=== PATIENT | male | born 1980 | race Caucasian/White ===

== ENCOUNTER → 2020-06-16 11:23 | Outpatient (BNVA) | payer MEDICAID, SELFPAY | PROVIDERS: Visit Provider Nurse Practitioner Family | DX: Z20.2 Contact with and (suspected) exposure to infections with a predominantly sexual mode of transmission (principal); N50.89 Other specified disorders of the male genital organs | CPT/HCPCS: 87086; 87491; 87591 ==

== ENCOUNTER 2020-07-19 15:48 | Inpatient (IN) | payer MEDICAID, SELFPAY ==
[2020-07-19 16:00] VITALS: BP 144/88; PULSE 114; RESP 22; TEMP 36.9; O2SAT 97; BMI 30.8
--- NOTE | 2020-07-19 16:13 | ECG_ITS ---
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 Measurements Intervals [place] Rate: 110 P: 47 OR: 171 QRS: -31 QRSD: 121 T: 70 QT: 317 QTc: 430 Interpretive Statements SINUS TACHYCARDIA POSSIBLE LEFT ATRIAL ENLARGEMENT [-0.1mV P WAVE IN V1/V2] MARKED LEFT AXIS DEVIATION [QRS AXIS < -30] RIGHT BUNDLE BRANCH BLOCK [120+ ms QRS DURATION, UPRIGHT V1, 40+ ms S IN I/aVL/V4/V5/V6] LEFT VENTRICULAR HYPERTROPHY AND ST-T CHANGE [VOLTAGE CRITERIA PLUS ST/T ABNORMALITY] Compared to ECG 09/21/2018 16:10:05 Left-axis deviation now present Right bundle-branch block now present Left ventricular hypertrophy now present Early repolarization no longer present ST (T wave) deviation still present Electronically Signed On 07-20-2020 17:09:27 SECTION HOUSEKEEPER by James Hopkins M.D. [email or web address]
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
[2020-07-19 16:30] VITALS: BP 137/65; PULSE 105; RESP 18; O2SAT 94
[2020-07-19 17:15] LABS: Add Urine Microscopic? NO
[2020-07-19] MEDS: LORazepam 2 mg/mL INJ 1 mL 1 MG IM (17:21)
[2020-07-19 17:22] LABS: Bilirubin Urine Neg (Negative); Blood Urine Neg (Negative); Glucose Urine UA Norm (Normal); Ketones Urine Negative (Negative); Leukocyte Esterase Urine Negative (Negative); Nitrate Urine Negative (Negative); Protein Urine Neg (Negative); Urine Appearance Clear (CLEAR); Urine Color Straw (Yellow); Urobilinogen Urine Norm (Negative); pH Urine 5 (5-7)
[2020-07-19] MEDS: haloperidol inj 5 mg/mL INJ 1 mL IM (17:27)
[2020-07-19] MEDS: LORazepam 1 mg Tablet PO (17:31)
[2020-07-19] MEDS: diphenhydrAMINE 50 mg/mL SDV 1mL IM (17:31)
[2020-07-19 18:05] LABS: Albumin Level 4.3 g/dL (3.5-5.2); Alcohol Level 224 mg/dL (0-10); Alkaline Phosphatase 54 IU/L (40-130); Chloride 104 mmol/L (98-107); Glucose 113 mg/dL (65-115); Potassium 4.1 mmol/L (3.5-5.1); Sodium 137 mmol/L (136-145)
[2020-07-19 18:20] LABS: Acetaminophen < 5.0 ug/mL (10-30); Salicylate < 0.3 mg/dL (3-10)
[2020-07-19 18:37] LABS: Amphetamines Screen Urine Negative (Negative); Barbiturates Screen Urine Negative (Negative); Benzodiazepines Screen Urine Negative (Negative); Cocaine Screen Urine Negative (Negative); Opiate Screen Urine Negative (Negative); PCP Screen Urine Negative (Negative); THC Screen Urine Negative (Negative)
[2020-07-19 18:47] LABS: Anion Gap 18.1 (5-19); Blood Urea Nitrogen 16 mg/dL (6-20); Calcium 8.7 mg/dL (8.5-10.5); Carbon Dioxide 19 mmol/L (22-29); Globulin 2.6 g/dL (1.3-4.6); Glomerular Filtration Rate 67.1 mL/min (90-130); Osmolality Calculated 286 mOsm/kg (285-295); Thyroid Stimulating Hormone 1.35 uIU/mL (0.27-4.20); Total Bilirubin 0.2 mg/dL (0.15-1.2); Total Protein 6.9 g/dL (6.6-8.7)
[2020-07-19 19:28] LABS: Alanine Aminotransferase < 5 U/L (0-41); Aspartate Amino Transferase 5 U/L (0-40)
[2020-07-19 20:04] LABS: Basophils % 0.6 %; Eosinophils # 0.3 10^3/uL (0.0-0.8); Eosinophils % 4.3 %; Hematocrit 40.3 % (42.0-52.0); Hemoglobin 13.8 g/dL (11.7-16.6); Lymphocytes # 2.6 10^3/uL (0.8-4.8); Lymphocytes % 41.3 %; Mean Corpuscular HGB Conc 34.2 g/dL (30.0-36.0); Mean Corpuscular Hemoglobin 30.4 pg (28.0-34.0); Mean Corpuscular Volume 88.8 fL (80-94); Mean Platelet Volume 8.3 fL (7.4-10.4); Monocytes # 0.3 10^3/uL (0.2-0.9); Monocytes % 5.1 %; Neutrophils # 3.01 10^3/uL (1.8-7.7); Neutrophils % 48.4 %; Nucleated Red Blood Cells % 0 %; Platelet Count 378 10^3/cmm (130-400); Red Blood Count 4.54 10^6/uL (4.1-5.3); Red Cell Distribution Width 12.4 % (12.1-15.1); White Blood Count 6.2 10^3/uL (4.0-10.0)
[2020-07-19 20:19] LABS: Alcohol Level 176 mg/dL (0-10)
[2020-07-19 21:43] VITALS: BP 103/69; PULSE 84; O2SAT 96
[2020-07-19 22:00] VITALS: PULSE 91; RESP 18; TEMP 36.8; O2SAT 96
[2020-07-19 22:33] VITALS: BP 109/63; PULSE 72; RESP 18; O2SAT 93
[2020-07-19 22:37] VITALS: BMI 30.8
[2020-07-19] MEDS: acetaminophen 325 mg Tablet 650 MG PO (22:59)
[2020-07-19] MEDS: trazodone 50 mg Tablet PO (23:00)
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
[2020-07-20 06:00] VITALS: RESP 17
[2020-07-20] MEDS: thiamine 100 mg Tablet PO (08:39)
[2020-07-20] MEDS: multivitamin therapeutic Tablet 1 TAB PO (08:39)
[2020-07-20] MEDS: lisinopril 20 mg Tablet PO ×2 (08:39→18:32)
[2020-07-20] MEDS: naproxen 500 mg Tablet PO ×2 (08:39→18:32)
[2020-07-20] MEDS: gabapentin 300 mg Capsule 600 MG PO ×3 (08:39→19:56)
[2020-07-20] MEDS: folic acid 1 mg Tablet PO (08:40)
[2020-07-20 08:47] VITALS: BP 135/93
[2020-07-20] MEDS: cloNIDine 0.1 mg Tablet PO (08:47)
[2020-07-20] MEDS: LORazepam 2 mg Tablet PO ×3 (08:48→19:57)
[2020-07-20] MEDS: nicotine 21 mg Patch 1 PATCH TRANSDERMA (08:49)
--- NOTE | 2020-07-20 08:53 | PC.NURSE ---
CIWA ADMINISTERED ATIVAN 2MG PER CIWA PROTOCOL. CIWA SCORE 10, WILL MONITOR FOR MEDICATION EFFECTIVENESS.
[2020-07-20 14:00] VITALS: BP 128/82; PULSE 88; RESP 18; TEMP 36.8
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
[2020-07-20] MEDS: amlodipine 5 mg Tablet PO (18:32)
[2020-07-20] MEDS: hyDROXYzine 25 mg Capsule 50 MG PO (19:56)
[2020-07-20] MEDS: trazodone 50 mg Tablet PO (19:57)
[2020-07-20] MEDS: guaiFENesin 600 mg Tablet 1200 MG PO (21:38)
[2020-07-20 22:00] VITALS: BP 135/90; PULSE 93; RESP 18; TEMP 36.6; O2SAT 98
[2020-07-21 06:00] VITALS: BP 123/80; PULSE 97; RESP 18; TEMP 37.2; O2SAT 93
[2020-07-21] MEDS: guaiFENesin 600 mg Tablet 1200 MG PO (08:05)
[2020-07-21] MEDS: thiamine 100 mg Tablet PO (08:05)
[2020-07-21 08:06] VITALS: BP 123/80
[2020-07-21] MEDS: cloNIDine 0.1 mg Tablet PO (08:06)
[2020-07-21] MEDS: lisinopril 20 mg Tablet PO (08:06)
[2020-07-21] MEDS: folic acid 1 mg Tablet PO (08:06)
[2020-07-21] MEDS: amlodipine 5 mg Tablet PO (08:06)
[2020-07-21] MEDS: gabapentin 300 mg Capsule 600 MG PO ×2 (08:06→13:57)
[2020-07-21] MEDS: naproxen 500 mg Tablet PO (08:06)
[2020-07-21] MEDS: multivitamin therapeutic Tablet 1 TAB PO (08:06)
[2020-07-21] MEDS: hyDROXYzine 25 mg Capsule 50 MG PO ×2 (08:07→13:57)
[2020-07-21] MEDS: nicotine 21 mg Patch 1 PATCH TRANSDERMA (08:49)
[2020-07-21] MEDS: LORazepam 2 mg Tablet PO (09:17)
[2020-07-21 12:53] VITALS: BP 123/80
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
[2020-07-21 13:03] VITALS: BP 123/80
== END 2020-07-21 14:56 | disposition home or self-care (01) | DRG 881 ==
LOC: ER 16:01 → NP 22:23
PROVIDERS: Admitting Provider Psychiatry & Neurology Psychiatry; Emergency Provider Family Medicine; Visit Provider Psychiatry & Neurology Psychiatry
DX: F32.9 Major depressive disorder, single episode, unspecified (principal); R45.851 Suicidal ideations; F41.9 Anxiety disorder, unspecified; Z59.0 Homelessness; F10.129 Alcohol abuse with intoxication, unspecified; Y90.9 Presence of alcohol in blood, level not specified; I10 Essential (primary) hypertension; F51.04 Psychophysiologic insomnia; F17.210 Nicotine dependence, cigarettes, uncomplicated; B07.9 Viral wart, unspecified; G89.29 Other chronic pain; M25.562 Pain in left knee; M25.561 Pain in right knee; Z87.820 Personal history of traumatic brain injury; F63.9 Impulse disorder, unspecified
CPT/HCPCS: 36415; 80053; 80306; 80307; 81003; 84443; 85025; 93005; 96372; 99285; J1200; J1630; J2060; J3411